=== PATIENT | male | born 1970 | race Caucasian/White ===

== ENCOUNTER 2021-01-22 11:37 | Emergency (ER) | payer BC ==
[2021-01-22 11:59] VITALS: BP 134/83; PULSE 86
[2021-01-22] MEDS ORDERED: Ketorolac 60 MG/2 ML SDV IM ONE (12:15)
[2021-01-22] MEDS ORDERED: Cyclobenzaprine 10 MG Tab PO ONE (12:15)
--- NOTE | 2021-01-22 12:41 | EDM.PDOC ---
ED HPI GENERAL MEDICAL PROBLEM - General Chief Complaint: Back Pain or Injury Stated Complaint: NECK AND LOW BACK PAIN Time Seen by Provider: 01/22/21 12:04 Source of Information: Reports: Patient, RN Notes Reviewed History Limitations: Reports: No Limitations - History of Present Illness INITIAL COMMENTS - FREE TEXT/NARRATIVE: Patient is a 50 year old male presenting to the ER with c/o neck and low back pain. 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 He had his welding helmet on top of his head and he sneezed, causing it to fall to the floor. He bent over to pick it up and experienced a sharp, stabbing pain his neck. He reports "tightness in his neck" and pain with turning his head from side to side. He has since developed muscle spasms in his low back as well. Denies any numbness, tingling, or radiation of pain. Denies bowel or bladder dysfunction. He has a history of degenerative disc disease and has had problems with neck and back pain intermittently for a number of years. He does see a chiropractor; however, they are not able to see him until Wednesday afternoon. His last dose of ibuprofen was around 0300 this morning. Back Pain Score (Numeric/FACES): 9 - Related Data Allergies Allergy/AdvReac Type Severity Reaction Status Date / Time No Known Allergies Allergy Verified 01/22/21 11:59 Home Meds: Home Meds Cyclobenzaprine [Flexeril] 10 mg PO TID PRN #10 tab 01/22/21 [Rx] Naproxen [Naprosyn] 500 mg PO Q12HR 5 Days #10 tab 01/22/21 [Rx] Past Medical History - Past Health History Medical/Surgical History: Denies Medical/Surgical History HEENT History: Reports: Impaired Vision Other HEENT History: glasses Cardiovascular History: Reports: Other (See Below) Other Cardiovascular History: history of chest pain Musculoskeletal History: Reports: Back Pain, Chronic Other Musculoskeletal History: Degenerative disc disease Endocrine/Metabolic History: Reports: Obesity/BMI 30+ - Past Surgical History Musculoskeletal Surgical History: Reports: Shoulder Surgery Other Musculoskeletal Surgeries/Procedures:: bilateral shoulder surgeries Social & Family History - Family History Family Medical History: No Pertinent Family History - Tobacco Use Tobacco Use Status *Q: Never Tobacco User - Caffeine Use Caffeine Use: Reports: Coffee, Energy Drinks - Recreational Drug Use Recreational Drug Use: No ED ROS GENERAL - Review of Systems Review Of Systems: See Below Constitutional: Reports: No Symptoms HEENT: Reports: No Symptoms Respiratory: Reports: No Symptoms Cardiovascular: Reports: No Symptoms Endocrine: Reports: No Symptoms GI/Abdominal: Reports: No Symptoms : Reports: No Symptoms Musculoskeletal: Reports: Neck Pain, Back Pain (low) Skin: Reports: No Symptoms Neurological: Reports: No Symptoms. Denies: Numbness, Paresthesia, Tingling Psychiatric: Reports: No Symptoms Hematologic/Lymphatic: Reports: No Symptoms Immunologic: Reports: No Symptoms ED EXAM,LOWER BACK PAIN/INJURY - Physical Exam Exam: See Below Exam Limited By: No Limitations General Appearance: Alert, WD/WN, No Apparent Distress Neck: Normal Inspection, Supple, Full Range of Motion, Tender Lateral (Bilaterally). No: Tender Midline Respiratory/Chest: No Respiratory Distress, Lungs Clear, Normal Breath Sounds, No Accessory Muscle Use, Chest Non-Tender Cardiovascular: Normal Peripheral Pulses, Regular Rate, Rhythm, No Edema, No Gallop, No JVD, No Murmur, No Rub Back Exam: Normal Inspection, Full Range of Motion, Paraspinal Tenderness (Bilateral low back). No: Vertebral Tenderness Extremities: Normal Inspection, Normal Range of Motion, Non-Tender, No Pedal Edema, Normal Capillary Refill Neurological: Alert, Normal Mood/Affect, Normal Dorsiflexion, CN II-XII Intact, Normal Plantar Flexion, Normal Gait, Normal Reflexes, No Motor/Sensory Deficits, Oriented x 3 Psychiatric: Normal Affect, Normal Mood Skin Exam: Warm, Dry, Intact, Normal Color, No Rash Course - Vital Signs Last Recorded V/S: Last Vital Signs Temp 97.1 F 01/22/21 11:56 Pulse 86 01/22/21 11:56 Resp 16 01/22/21 11:56 BP 134/83 01/22/21 11:56 Pulse Ox 99 01/22/21 11:56 - Orders/Labs/Meds Meds: Medications Discontinued Medications Generic Name Dose Route Start Last Admin Trade Name Freq PRN Reason Stop Dose Admin Cyclobenzaprine HCl 10 mg 01/22/21 12:15 01/22/21 12:34 Cyclobenzaprine 10 Mg Tab PO 01/22/21 12:16 10 mg ONETIME ONE Administration Ketorolac Tromethamine 60 mg 01/22/21 12:15 01/22/21 12:35 Ketorolac 60 Mg/2 Ml Sdv IM 01/22/21 12:16 60 mg ONETIME ONE Administration - Re-Assessments/Exams Free Text/Narrative Re-Assessment/Exam: 01/22/21 13:16 X-rays reviewed by myself and Dr. Brandon showed no acute abnormalities, however formal radiologist read is pending. Patient is feeling much better after the medications given. We will discharge him home with prescription for Flexeril and Naprosyn. He does have an appointment on Wednesday with chiropractor. Recommend that he keep this. I will give him a note for work for [employer]. Discharge instructions as documented. Departure - Departure Time of Disposition: 13:16 Disposition: Home, Self-Care 01 Condition: Good Clinical Impression: Neck pain Low back pain Qualifiers: Chronicity: acute Back pain laterality: unspecified Sciatica presence: without sciatica Qualified Code(s): M54.5 - Low back pain - Discharge Information Prescriptions: Cyclobenzaprine [Flexeril] 10 mg PO TID PRN #10 tab PRN Reason: Muscle Spasm Naproxen [Naprosyn] 500 mg PO Q12HR 5 Days #10 tab Instructions: Acute Back Pain, Adult Referrals: Flaquito Kerns MD [Primary Care Provider] - Forms: ED Department Discharge, ED Return to Work/School Form Additional Instructions: You were seen in the emergency department today for low back and neck pain that began at work last evening. X-rays were completed did not show any acute abnormalities, however formal radiologist read is pending. If this should report should find any concerning, you will be notified. You been started on Flexeril which is a muscle relaxer as well as Naprosyn for pain. Take these medications as prescribed. You may use Tylenol as needed for pain not relieved by these medications. Ensure that you are not taking more than 4000 mg of Tylenol per day from all sources. Applying heat intermittently to the areas of discomfort will also help to relax the muscles. Keep your appointment on Wednesday with your chiropractor. Return to ER for any new or worsening symptoms. Sepsis Event Note (ED) - Evaluation Sepsis Screening Result: No Definite Risk
--- NOTE | 2021-01-22 14:15 | CR ---
Lumbar spine: AP and lateral views of the lumbar spine were obtained. Comparison: Prior MRI lumbar spine study of 09/19/14. There is mild posterior disc space narrowing at L1-2, L2-3 and L3-4. Mild diffuse disc space narrowing at L4-5. Minimal scattered endplate osteophytes are seen. Pedicles are intact. Visualized transverse and spinous processes are intact. No subluxation or fracture is seen. Impression: 1. Mild diffuse disc space narrowing and endplate osteophytes. 2. Findings remain fairly stable from previous MRI. Diagnostic code #2
--- NOTE | 2021-01-22 14:16 | CR ---
Cervical spine: AP, lateral, odontoid and minimal flexion and extension views were obtained. Mild disc space narrowing is noted at C3-4, C4-5 with moderate disc space narrowing C5-6. Mild disc space narrowing is seen at C6-7. Slight posterior osteophyte are seen at C5-6 and C6-7. Slight anterior osteophytes are noted at C5-6 and C6-7. Minimal spurring is noted within the uncovertebral joints at C4-5 on the left side and at C5-6 on the left side. No discrete fracture or subluxation is seen. Impression: 1. Mild diffuse degenerative change as noted above. 2. Nothing acute is seen. Diagnostic code #2
== END 2021-01-22 13:32 | disposition home or self-care (01) ==
LOC: JD.ED 11:37
DX: M54.5 Low back pain (principal); M54.2 Cervicalgia; E66.9 Obesity, unspecified; Z68.33 Body mass index [BMI] 33.0-33.9, adult
CPT/HCPCS: 72040; 72100; 96372; 99283; A9270; J1885

== ENCOUNTER 2021-02-11 10:53 | Emergency (ER) | payer BC ==
[2021-02-11] MEDS ORDERED: Sodium Chloride 0.9% 10 ML Syringe FLUSH PRN (11:21)
[2021-02-11] MEDS ORDERED: hydrOXYzine HCl 50 MG Tab PO ONE (11:44)
[2021-02-11] MEDS ORDERED: LORazepam 2 MG/ML SDV IVPUSH ONE (11:44)
--- NOTE | 2021-02-11 11:45 | EDM.PDOC ---
ED HPI GENERAL MEDICAL PROBLEM - General Chief Complaint: Chest Pain Stated Complaint: SOB/CLAMMY/SHAKEY CHEST PAIN Time Seen by Provider: 02/11/21 11:07 Source of Information: Reports: Patient History Limitations: Reports: No Limitations - History of Present Illness INITIAL COMMENTS - FREE TEXT/NARRATIVE: 50 yo M presents with CP/SOB. Started this morning after he took workout supplements (unsure of exact contents but believes the do contain stimulants) and drinking caffeinated beverages. Had substernal chest tightness, palpitations, and paresthesias of bilateral upper extremities. Feels anxious/panicky. Feels tremulous. Nausea, no vomiting. Symptoms started suddenly and have been constant. No hx similar symptoms previously. No cough/fever/recent illness. He did have neck pain and is on last day of a prednisone taper for that. No additional complaint. Denies ETOH or drug use. Middle Chest Pain Score (Numeric/FACES): 2 - Related Data Allergies Allergy/AdvReac Type Severity Reaction Status Date / Time No Known Allergies Allergy Verified 02/11/21 11:10 Home Meds: Home Meds hydrOXYzine HCL [Atarax] 25 mg PO Q6H PRN #24 tab 02/11/21 [Rx] methylPREDNISolone [Methylprednisolone] 1 dose PO ASDIRECTED 02/11/21 [History] Past Medical History - Past Health History Medical/Surgical History: Denies Medical/Surgical History HEENT History: Reports: Impaired Vision Other HEENT History: glasses Cardiovascular History: Reports: Other (See Below) Other Cardiovascular History: history of chest pain Musculoskeletal History: Reports: Back Pain, Chronic Other Musculoskeletal History: Degenerative disc disease Endocrine/Metabolic History: Reports: Obesity/BMI 30+ - Past Surgical History Musculoskeletal Surgical History: Reports: Shoulder Surgery Other Musculoskeletal Surgeries/Procedures:: bilateral shoulder surgeries Social & Family History - Family History Family Medical History: No Pertinent Family History - Tobacco Use Tobacco Use Status *Q: Never Tobacco User Second Hand Smoke Exposure: No - Caffeine Use Caffeine Use: Reports: Coffee, Energy Drinks - Recreational Drug Use Recreational Drug Use: No ED ROS GENERAL - Review of Systems Review Of Systems: See Below Constitutional: Reports: No Symptoms HEENT: Reports: No Symptoms Respiratory: Reports: Shortness of Breath Cardiovascular: Reports: Chest Pain Endocrine: Reports: No Symptoms GI/Abdominal: Reports: Nausea Musculoskeletal: Reports: Neck Pain Skin: Reports: No Symptoms Neurological: Reports: Dizziness Psychiatric: Reports: Anxiety Hematologic/Lymphatic: Reports: No Symptoms Immunologic: Reports: No Symptoms ED EXAM, GENERAL - Physical Exam Exam: See Below Exam Limited By: No Limitations General Appearance: Alert, Anxious, Mild Distress Eye Exam: Bilateral Eye: Normal Inspection Ears: Normal External Exam Nose: Normal Inspection Throat/Mouth: Normal Inspection, Normal Voice, No Airway Compromise Head: Atraumatic Neck: Normal Inspection Respiratory/Chest: No Respiratory Distress, Lungs Clear, Normal Breath Sounds, No Accessory Muscle Use, Chest Non-Tender Cardiovascular: Normal Peripheral Pulses, Regular Rate, Rhythm, No Edema GI/Abdominal: No Distention Extremities: Normal Inspection Neurological: Alert, Oriented, Normal Cognition, No Motor/Sensory Deficits Psychiatric: Normal Affect, Normal Mood Skin Exam: Warm, Normal Color, No Rash, Diaphoretic Course - Vital Signs Last Recorded V/S: Last Vital Signs Temp 36.1 C 02/11/21 11:11 Pulse 84 02/11/21 11:11 Resp 16 02/11/21 11:11 BP 169/95 H 02/11/21 11:11 Pulse Ox 99 02/11/21 11:11 - Orders/Labs/Meds Orders: Active Orders 24 hr Category Date Time Status EKG 12 Lead [EKG Documentation Completion] [RC] STAT Care 02/11/21 11:21 Active Peripheral IV Care [RC] . DIRECTED Care 02/11/21 11:21 Active Peripheral IV Care [RC] . DIRECTED Care 02/11/21 11:21 Active Sodium Chloride 0.9% [Saline Flush] Med 02/11/21 11:21 Active 10 ml FLUSH ASDIRECTED PRN Peripheral IV Insertion Adult [OM.PC] Routine Oth 02/11/21 11:21 Ordered Medication Orders Sodium Chloride (Sodium Chloride 0.9% 10 Ml Syringe) 10 ml FLUSH ASDIRECTED PRN PRN Reason: Keep Vein Open Last Admin: 02/11/21 11:22 Dose: 10 ml Documented by: YUAN Labs: Laboratory Tests 02/11/21 02/11/21 02/11/21 Range/Units 11:10 11:10 11:10 WBC 14.74 H (4.23-9.07) K/mm3 RBC 5.67 (4.63-6.08) M/mm3 Hgb 16.6 (13.7-17.5) gm/dl Hct 47.4 (40.1-51.0) % MCV 83.6 (79.0-92.2) fl MCH 29.3 (25.7-32.2) pg MCHC 35.0 (32.2-35.5) g/dl RDW Std Deviation 38.9 (35.1-43.9) fL Plt Count 305 (163-337) K/mm3 MPV 9.7 (9.4-12.3) fl Neut % (Auto) 78.6 H (34.0-67.9) % Lymph % (Auto) 14.4 L (21.8-53.1) % [place] % (Auto) 6.7 (5.3-12.2) % Eos % (Auto) 0.2 L (0.8-7.0) Baso % (Auto) 0.1 (0.1-1.2) % Neut # (Auto) 11.58 H (1.78-5.38) K/mm3 Lymph # (Auto) 2.12 (1.32-3.57) K/mm3 [place] # (Auto) 0.99 H (0.30-0.82) K/mm3 Eos # (Auto) 0.03 L (0.04-0.54) K/mm3 Baso # (Auto) 0.02 (0.01-0.08) K/mm3 Manual Slide Review Normal smear D-Dimer, Quantitative < 0.19 L (0.19-0.50) mg/L Sodium 138 (136-145) mEq/L Potassium 3.6 (3.5-5.1) mEq/L Chloride 100 (98-107) mEq/L Carbon Dioxide 26 (21-32) mEq/L Anion Gap 15.6 H (5-15) BUN 21 H (7-18) mg/dL Creatinine 1.3 (0.7-1.3) mg/dL Est Cr Clr Drug Dosing 74.01 mL/min Estimated GFR (MDRD) 59 (>60) mL/min BUN/Creatinine Ratio 16.2 (14-18) Glucose 109 H (70-99) mg/dL POC Glucose (70-99) mg/dL Calcium 9.2 (8.5-10.1) mg/dL Magnesium 2.3 (1.8-2.4) mg/dL Total Bilirubin 0.5 (0.2-1.0) mg/dL AST 25 (15-37) U/L ALT 77 H (16-63) U/L Alkaline Phosphatase 87 (46-116) U/L Troponin I < 0.017 (0.00-0.056) ng/mL Total Protein 8.1 (6.4-8.2) g/dl Albumin 4.4 (3.4-5.0) g/dl Globulin 3.7 gm/dL Albumin/Globulin Ratio 1.2 (1-2) 02/11/21 Range/Units 11:15 WBC (4.23-9.07) K/mm3 RBC (4.63-6.08) M/mm3 Hgb (13.7-17.5) gm/dl Hct (40.1-51.0) % MCV (79.0-92.2) fl MCH (25.7-32.2) pg MCHC (32.2-35.5) g/dl RDW Std Deviation (35.1-43.9) fL Plt Count (163-337) K/mm3 MPV (9.4-12.3) fl Neut % (Auto) (34.0-67.9) % Lymph % (Auto) (21.8-53.1) % [place] % (Auto) (5.3-12.2) % Eos % (Auto) (0.8-7.0) Baso % (Auto) (0.1-1.2) % Neut # (Auto) (1.78-5.38) K/mm3 Lymph # (Auto) (1.32-3.57) K/mm3 [place] # (Auto) (0.30-0.82) K/mm3 Eos # (Auto) (0.04-0.54) K/mm3 Baso # (Auto) (0.01-0.08) K/mm3 Manual Slide Review D-Dimer, Quantitative (0.19-0.50) mg/L Sodium (136-145) mEq/L Potassium (3.5-5.1) mEq/L Chloride (98-107) mEq/L Carbon Dioxide (21-32) mEq/L Anion Gap (5-15) BUN (7-18) mg/dL Creatinine (0.7-1.3) mg/dL Est Cr Clr Drug Dosing mL/min Estimated GFR (MDRD) (>60) mL/min BUN/Creatinine Ratio (14-18) Glucose (70-99) mg/dL POC Glucose 106 H (70-99) mg/dL Calcium (8.5-10.1) mg/dL Magnesium (1.8-2.4) mg/dL Total Bilirubin (0.2-1.0) mg/dL AST (15-37) U/L ALT (16-63) U/L Alkaline Phosphatase (46-116) U/L Troponin I (0.00-0.056) ng/mL Total Protein (6.4-8.2) g/dl Albumin (3.4-5.0) g/dl Globulin gm/dL Albumin/Globulin Ratio (1-2) Meds: Medications Generic Name Dose Route Start Last Admin Trade Name Freq PRN Reason Stop Dose Admin Sodium Chloride 10 ml 02/11/21 11:21 02/11/21 11:22 Sodium Chloride 0.9% 10 Ml Syringe FLUSH 10 ml ASDIRECTED PRN Administration Keep Vein Open Discontinued Medications Generic Name Dose Route Start Last Admin Trade Name Freq PRN Reason Stop Dose Admin Hydroxyzine HCl 50 mg 02/11/21 11:44 02/11/21 11:53 Hydroxyzine Hcl 50 Mg Tab PO 02/11/21 11:45 50 mg ONETIME ONE Administration Lorazepam 1 mg 02/11/21 11:44 02/11/21 11:54 Lorazepam 2 Mg/Ml Sdv IVPUSH 02/11/21 11:45 1 mg ONETIME ONE Administration - Re-Assessments/Exams Free Text/Narrative Re-Assessment/Exam: 02/11/21 11:52 EKG shows NSR, normal intervals, no evidence of acute ischemia or arrhythmia. CXR unremarkable. Labs including troponin normal. Advised patient to discontinue exercise supplements and reduce caffeine use. He feels much better now. We will discharge him with small rx hydroxyzine, discussed ED return precautions. 02/11/21 14:21 Departure - Departure Time of Disposition: 13:30 Disposition: Home, Self-Care 01 Clinical Impression: Palpitations Chest pain Qualifiers: Chest pain type: other chest pain Qualified Code(s): R07.89 - Other chest pain Prescriptions: hydrOXYzine HCL [Atarax] 25 mg PO Q6H PRN #24 tab PRN Reason: Anxiety Instructions: Nonspecific Chest Pain, Adult, [id number] Referrals: Flaquito Kerns MD [Primary Care Provider] - Forms: ED Department Discharge, ED Return to Work/School Form Additional Instructions: 1. Avoid caffeine and any supplements that contain stimulants 2. Take hydroxyzine as needed for anxiety symptoms 3. Follow up with your regular doctor as soon as possible 4. Return to the ED as needed for any new concerning symptoms Sepsis Event Note (ED) - Evaluation Sepsis Screening Result: No Definite Risk - Focused Exam Vital Signs: Vital Signs Temp Pulse Resp BP Pulse Ox 02/11/21 11:11 36.1 C 84 16 169/95 H 99 - My Orders Last 24 Hours: My Active Orders 02/11/21 11:21 EKG 12 Lead [EKG Documentation Completion] [RC] STAT Peripheral IV Care [RC] . DIRECTED Peripheral IV Care [RC] . DIRECTED Sodium Chloride 0.9% [Saline Flush] 10 ml FLUSH ASDIRECTED PRN Peripheral IV Insertion Adult [OM.PC] Routine - Assessment/Plan Last 24 Hours: My Active Orders 02/11/21 11:21 EKG 12 Lead [EKG Documentation Completion] [RC] STAT Peripheral IV Care [RC] . DIRECTED Peripheral IV Care [RC] . DIRECTED Sodium Chloride 0.9% [Saline Flush] 10 ml FLUSH ASDIRECTED PRN Peripheral IV Insertion Adult [OM.PC] Routine
--- NOTE | 2021-02-11 12:09 | CR ---
Chest: Portable view of the chest was obtained. Comparison: Prior chest x-rays of 04/12/14 and 03/20/14. Findings: Heart size and mediastinum are normal. Lungs are clear with no acute parenchymal change. No acute osseous abnormality is appreciated. Impression: 1. Nothing acute is seen on portable chest x-ray. Diagnostic code #1
[2021-02-11 15:00] VITALS: BP 122/89; PULSE 83
== END 2021-02-11 14:45 | disposition home or self-care (01) ==
LOC: JD.ED 10:53
DX: R07.89 Other chest pain (principal); R00.2 Palpitations; E66.9 Obesity, unspecified; Z68.32 Body mass index [BMI] 32.0-32.9, adult
CPT/HCPCS: 36415; 71045; 80053; 82947; 83735; 84484; 85025; 85379; 93005; 96374; 99285; A9270; J2060

== ENCOUNTER 2021-02-12 22:05 | Emergency (ER) | payer BC ==
[2021-02-12 22:19] VITALS: BP 146/89
[2021-02-12] MEDS ORDERED: LORazepam 2 MG/ML SDV IVPUSH ONE (22:43)
[2021-02-12] MEDS ORDERED: Aspirin 81 MG Tab.Chew PO ONE (22:43)
--- NOTE | 2021-02-12 22:58 | EDM.PDOC ---
<Misbah No - Last Filed: 02/12/21 23:05> ED HPI GENERAL MEDICAL PROBLEM - General Chief Complaint: Respiratory Problem Stated Complaint: [facility] Time Seen by Provider: 02/12/21 22:32 Source of Information: Reports: Patient, EMS, RN Notes Reviewed - History of Present Illness INITIAL COMMENTS - FREE TEXT/NARRATIVE: 50 yr old male started getting ant. chest discomfort while at work about 3 hrs ago. He than started getting short of breath. He started driving himself here but that got more short of breath, lightheaded, felt like he was about to pass out so pulled to edge of road or street and called EMS. No known cardiac or pulmonary hx. 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 He and his both had covid about 2 months ago. His sx were not severe. He is under a lot of stress, his has long covid, currently unable to work. He presented to this ED yesterday with very similar sx. Had a complete neg work up with appropriate labs and Xray including a neg trop. and D Dimer. See that record for details. He does not smoke. He is not diabetic. Of noted he did have paresthesias of both upper extremities yesterday and did experience that again this evening. - Related Data Allergies Allergy/AdvReac Type Severity Reaction Status Date / Time No Known Allergies Allergy Verified 02/11/21 11:10 Home Meds: Home Meds hydrOXYzine HCL [Atarax] 25 mg PO Q6H PRN #24 tab 02/11/21 [Rx] methylPREDNISolone [Methylprednisolone] 1 dose PO ASDIRECTED 02/11/21 [History] Past Medical History - Past Health History Medical/Surgical History: Denies Medical/Surgical History HEENT History: Reports: Impaired Vision Other HEENT History: glasses Cardiovascular History: Reports: Other (See Below) Other Cardiovascular History: history of chest pain Musculoskeletal History: Reports: Back Pain, Chronic Other Musculoskeletal History: Degenerative disc disease Endocrine/Metabolic History: Reports: Obesity/BMI 30+ - Past Surgical History Musculoskeletal Surgical History: Reports: Shoulder Surgery Other Musculoskeletal Surgeries/Procedures:: bilateral shoulder surgeries Social & Family History - Family History Family Medical History: No Pertinent Family History - Tobacco Use Tobacco Use Status *Q: Never Tobacco User - Caffeine Use Caffeine Use: Reports: Energy Drinks - Recreational Drug Use Recreational Drug Use: No ED ROS GENERAL - Review of Systems Review Of Systems: See Below Constitutional: Denies: Fever, Chills, Diaphoresis HEENT: Reports: No Symptoms Respiratory: Reports: Shortness of Breath. Denies: Pleuritic Chest Pain Cardiovascular: Reports: Chest Pain GI/Abdominal: Denies: Abdominal Pain, Nausea, Vomiting Musculoskeletal: Denies: Shoulder Pain, Arm Pain, Back Pain Skin: Reports: No Symptoms Neurological: Reports: Dizziness, Numbness (bilat hands and fingers) ED EXAM, GENERAL - Physical Exam Exam: See Below General Appearance: Alert, Anxious Throat/Mouth: Normal Inspection Head: Atraumatic Neck: Supple Respiratory/Chest: No Respiratory Distress, Lungs Clear, Normal Breath Sounds Cardiovascular: Regular Rate, Rhythm GI/Abdominal: Soft, Non-Tender Back Exam: No: CVA Tenderness (L), CVA Tenderness (R) Extremities: Normal Inspection. No: Leg Pain, Increased Warmth, Redness Neurological: Alert, Oriented, No Motor/Sensory Deficits Skin Exam: Warm, Dry, Normal Color #1 Interpretation EKG Date: 02/12/21 Rhythm: NSR [place]: Normal P-Wave: Present QRS: Other (very small q waves lead III) ST-T: Elevated (very slight st elevation lead III) Course - Re-Assessments/Exams Free Text/Narrative Re-Assessment/Exam: 02/12/21 23:00. It is now time for end of my shift. Have reviewed record of yesterday's visit. As noted workup yesterday was neg. including neg trop. and D Dimer. EKG does not show acute findings, CXR nl. Trop pending. Have ordered ASA 324 mg PO, ativan 0.5 mg IV. Departure - Departure Disposition: Home, Self-Care 01 Clinical Impression: Atypical chest pain, Anxiety - Discharge Information Referrals: PCP,None [Primary Care Provider] - Forms: ED Department Discharge Additional Instructions: Return to the emergency room with any questions problems or concerning symptoms. Avoid energy drinks. Push lots of fluids that are noncaffeinated. Use the hydroxyzine as needed for anxiety. Establish with a local healthcare provider. The phone number to the hospital clinic is [phone]. Sepsis Event Note (ED) - Evaluation Sepsis Screening Result: No Definite Risk <Juan Jose Eisenberg - Last Filed: 02/13/21 00:05> Course - Vital Signs Last Recorded V/S: Last Vital Signs Temp 36.7 C 02/12/21 22:13 Pulse 94 02/12/21 22:13 Resp 18 02/12/21 22:13 BP 146/89 H 02/12/21 22:13 Pulse Ox 97 02/12/21 22:13 - Orders/Labs/Meds Orders: Active Orders 24 hr Category Date Time Status EKG Documentation Completion [RC] ASDIRECTED Care 02/12/21 22:14 Active Chest 1V Frontal [CR] Stat Exams 02/12/21 22:17 Taken EKG 12 Lead [EK] Stat Ther 02/12/21 22:14 Ordered Labs: Laboratory Tests 02/12/21 Range/Units 23:00 Troponin I < 0.017 (0.00-0.056) ng/mL Meds: Medications Discontinued Medications Generic Name Dose Route Start Last Admin Trade Name Fredoq PRN Reason Stop Dose Admin Aspirin 324 mg 02/12/21 22:43 02/12/21 22:49 Aspirin 81 Mg Tab.Chew PO 02/12/21 22:44 324 mg ONETIME ONE Administration Lorazepam 0.5 mg 02/12/21 22:43 02/12/21 22:49 Lorazepam 2 Mg/Ml Sdv IVPUSH 02/12/21 22:44 0.5 mg ONETIME ONE Administration - Re-Assessments/Exams Free Text/Narrative Re-Assessment/Exam: 02/13/21 00:02 Assumed care at after Dr. No was done with this shift. The patient's troponin came back negative he received 0.5 of Ativan and feels much better. We will discharge home at this time. Departure - Departure Time of Disposition: 00:03 Sepsis Event Note (ED) - Focused Exam Vital Signs: Vital Signs Temp Pulse Resp BP Pulse Ox 02/12/21 22:13 36.7 C 94 18 146/89 H 97
[2021-02-13 00:09] VITALS: PULSE 89
--- NOTE | 2021-02-13 08:12 | CR ---
Chest: Frontal view of the chest was obtained. Comparison: Prior chest x-ray of 02/11/21. Heart size and mediastinum are normal. Lungs are clear with no acute parenchymal change. No acute osseous abnormality is appreciated. Impression: 1. Nothing acute is seen on frontal chest x-ray. Diagnostic code #1
== END 2021-02-13 00:09 | disposition home or self-care (01) ==
LOC: JD.ED 22:05
DX: R07.89 Other chest pain (principal); F41.9 Anxiety disorder, unspecified; E66.9 Obesity, unspecified; Z68.34 Body mass index [BMI] 34.0-34.9, adult
CPT/HCPCS: 36415; 71045; 84484; 93005; 96374; 99285; A9270; J2060; 93010; 99284

== ENCOUNTER 2021-02-13 21:54 | Emergency (ER) | payer BC ==
[2021-02-13 22:05] VITALS: BP 138/85; PULSE 87
--- NOTE | 2021-02-13 22:21 | EDM.PDOC ---
ED HPI GENERAL MEDICAL PROBLEM - General Chief Complaint: Chest Pain Stated Complaint: SOB/CHEST PAIN Time Seen by Provider: 02/13/21 22:01 Source of Information: Reports: Patient, Family History Limitations: Reports: No Limitations - History of Present Illness INITIAL COMMENTS - FREE TEXT/NARRATIVE: Patient is a 50-year-old male who is complaining of numerous somatic complaints including dizziness which is worse with standing and a 10 out of 10 sharp stabbing chest pain which started approximately 1 hour prior to arrival has completely resolved in the meantime and he states was very short in duration. Patient was feeling nauseous at the time denies any nausea vomiting diarrhea. Chest pain seems to be worse with eating or drinking. Patient is feeling very lightheaded at times is feeling dizzy. Clinically he looks dehydrated. Patient was seen in the emergency department twice in the last 2 days and was seen by his PCP earlier today all for similar symptoms. With his ER visits all his lab work and EKGs were normal and is felt to be having anxiety since he responded to lorazepam. Patient is complaining of having some paresthesias and his upper extremities right more so than left he denies any focal weakness or other neurological symptoms. Patient was noted to be drinking excessive amount of energy drinks yesterday but denies having any today. Nuys any bloody or tarry looking stools. He has had no hematemesis. Is any swelling to his calves or ankles. He is not feeling short of breath. Duration: Day(s): (3 days), Waxing/Waning Severity: Moderate Improves with: Reports: None Worsens with: Reports: Eating Associated Symptoms: Reports: Chest Pain. Denies: Cough, Diaphoresis, Fever/Chills, Headaches, Loss of Appetite, Rash, Shortness of Breath Middle Chest Pain Score (Numeric/FACES): 7 - Related Data Allergies Allergy/AdvReac Type Severity Reaction Status Date / Time No Known Allergies Allergy Verified 02/13/21 22:05 Home Meds: Home Meds hydrOXYzine HCL [Atarax] 25 mg PO Q6H PRN #24 tab 02/11/21 [Rx] Sertraline [Zoloft] 50 mg PO BEDTIME 02/13/21 [History] Metoclopramide [Reglan] 5 mg PO Q8H PRN #20 tab 02/14/21 [Rx] Past Medical History - Past Health History Medical/Surgical History: Denies Medical/Surgical History HEENT History: Reports: Impaired Vision Other HEENT History: glasses Cardiovascular History: Reports: Other (See Below) Other Cardiovascular History: history of chest pain Musculoskeletal History: Reports: Back Pain, Chronic Other Musculoskeletal History: Degenerative disc disease Psychiatric History: Reports: Anxiety Endocrine/Metabolic History: Reports: Obesity/BMI 30+ - Past Surgical History Musculoskeletal Surgical History: Reports: Shoulder Surgery Other Musculoskeletal Surgeries/Procedures:: bilateral shoulder surgeries Social & Family History - Family History Family Medical History: No Pertinent Family History - Tobacco Use Tobacco Use Status *Q: Never Tobacco User - Caffeine Use Caffeine Use: Reports: Energy Drinks, Soda - Recreational Drug Use Recreational Drug Use: No ED ROS GENERAL - Review of Systems Review Of Systems: Comprehensive ROS is negative, except as noted in HPI. Constitutional: Reports: Malaise. Denies: Fever, Chills HEENT: Reports: No Symptoms Respiratory: Reports: No Symptoms Cardiovascular: Reports: Chest Pain, Lightheadedness. Denies: Dyspnea on Exertion, Edema, Palpitations Endocrine: Reports: Fatigue. Denies: Polydypsia, Polyuria GI/Abdominal: Reports: No Symptoms. Denies: Black Stool : Reports: No Symptoms Musculoskeletal: Reports: No Symptoms Skin: Reports: No Symptoms Neurological: Reports: Dizziness, Numbness, Paresthesia, Tingling. Denies: Headache, Trouble Speaking, Change in Speech, Gait Disturbance Psychiatric: Reports: No Symptoms Hematologic/Lymphatic: Reports: No Symptoms ED EXAM, GENERAL - Physical Exam Exam: See Below Exam Limited By: No Limitations General Appearance: No Apparent Distress Throat/Mouth: Other (Mucous membranes are dry.) Neck: Normal Inspection, Supple, Full Range of Motion Cardiovascular: Regular Rate, Rhythm, No Edema, No JVD GI/Abdominal: Normal Bowel Sounds, Soft, Non-Tender Back Exam: Normal Inspection Extremities: Normal Inspection, No Pedal Edema Neurological: Alert, Oriented, CN II-XII Intact, Slow to Respond Psychiatric: Flat Affect Skin Exam: Warm, Dry, Normal Color, No Rash Lymphatic: No Adenopathy #1 Interpretation EKG Date: 02/13/21 Rhythm: NSR P-Wave: Present QRS: Normal ST-T: Normal QT: Normal Comparison: No Change (Normal sinus rhythm without any ST or T wave changes.) Course - Vital Signs Text/Narrative:: Patient is clinically dehydrated. I believe he is having some vertigo symptoms and have given him some Reglan 5 mg IV for this. He will receive 2 L of IV fluid. His chest pain which occurred 1 hour ago briefly 10 out of 10 intensity after eating and drinking I believe is related to some gastroesophageal reflux disease. I given him a GI cocktail for this. Work-up tonight is normal except a slightly elevated ALT.patient is feeling much better after 1 L IV fluid. After he received a second liter I will discharge him home with a prescription for Reglan and instructed him to get some [id number] Prilosec and follow- up with his PCP. Patient is to return to ER if symptoms are worse and follow-up with his PCP if symptoms continue. Last Recorded V/S: Last Vital Signs Temp 97.8 F 02/13/21 22:01 Pulse 87 02/13/21 22:01 Resp 16 02/13/21 22:01 BP 138/85 02/13/21 22:01 Pulse Ox 97 02/13/21 22:01 - Orders/Labs/Meds Orders: Active Orders 24 hr Category Date Time Status EKG 12 Lead [EKG Documentation Completion] [RC] STAT Care 02/13/21 22:00 Active EKG Documentation Completion [RC] STAT Care 02/13/21 22:22 Active Sodium Chloride 0.9% [Normal Saline] 1,000 ml Med 02/13/21 23:32 Active IV ONETIME Medication Orders Sodium Chloride (Normal Saline) 1,000 mls @ 999 mls/hr IV ONETIME ONE Stop: 02/14/21 00:32 Last Admin: 02/13/21 23:40 Dose: 999 mls/hr Documented by: MEREDITH Labs: Laboratory Tests 02/13/21 02/13/21 02/13/21 Range/Units 22:30 22:30 23:49 WBC 9.67 H (4.23-9.07) K/mm3 RBC 5.65 (4.63-6.08) M/mm3 Hgb 16.1 (13.7-17.5) gm/dl Hct 48.6 (40.1-51.0) % MCV 86.0 (79.0-92.2) fl MCH 28.5 (25.7-32.2) pg MCHC 33.1 (32.2-35.5) g/dl RDW Std Deviation 41.0 (35.1-43.9) fL Plt Count 308 (163-337) K/mm3 MPV 9.6 (9.4-12.3) fl Neutrophils % (Manual) 78 H (40-60) % Band Neutrophils % 0 (0-10) % Lymphocytes % (Manual) 15 L (20-40) % Atypical Lymphs % 0 % Monocytes % (Manual) 7 (2-10) % Eosinophils % (Manual) 0 L (0.8-7.0) % Basophils % (Manual) 0 L (0.2-1.2) Platelet Estimate Adequate Plt Morphology Comment Normal RBC Morph Comment Normal Sodium 140 (136-145) mEq/L Potassium 4.3 (3.5-5.1) mEq/L Chloride 102 (98-107) mEq/L Carbon Dioxide 27 (21-32) mEq/L Anion Gap 15.3 H (5-15) BUN 17 (7-18) mg/dL Creatinine 1.2 (0.7-1.3) mg/dL Est Cr Clr Drug Dosing 77.73 mL/min Estimated GFR (MDRD) > 60 (>60) mL/min BUN/Creatinine Ratio 14.2 (14-18) Glucose 122 H (70-99) mg/dL Calcium 8.8 (8.5-10.1) mg/dL Total Bilirubin 0.3 (0.2-1.0) mg/dL AST 26 (15-37) U/L ALT 80 H (16-63) U/L Alkaline Phosphatase 84 (46-116) U/L CK-MB (CK-2) 0.8 (0-3.6) ng/ml Troponin I < 0.017 (0.00-0.056) ng/mL Total Protein 7.6 (6.4-8.2) g/dl Albumin 3.9 (3.4-5.0) g/dl Globulin 3.7 gm/dL Albumin/Globulin Ratio 1.1 (1-2) Urine Color Light yellow (Yellow) Urine Appearance Clear (Clear) Urine pH 7.0 (5.0-8.0) Ur Specific [employer] 1.025 (1.005-1.030) Urine Protein Negative (Negative) Urine Glucose (UA) Negative (Negative) Urine Ketones Negative (Negative) Urine Occult Blood Negative (Negative) Urine Nitrite Negative (Negative) Urine Bilirubin Negative (Negative) Urine Urobilinogen 0.2 (0.2-1.0) Ur Leukocyte Esterase Negative (Negative) Meds: Medications Generic Name Dose Route Start Last Admin Trade Name Freq PRN Reason Stop Dose Admin Sodium Chloride 1,000 mls @ 999 mls/hr 02/13/21 23:32 02/13/21 23:40 Normal Saline IV 02/14/21 00:32 999 mls/hr ONETIME ONE Administration Discontinued Medications Generic Name Dose Route Start Last Admin Trade Name Fredoq PRN Reason Stop Dose Admin Al Hydroxide/Mg Hydroxide 30 0 ml 02/13/21 22:24 02/13/21 22:39 ml/ Lidocaine HCl 15 ml PO 02/13/21 22:25 45 ml ONETIME ONE Administration Sodium Chloride 1,000 mls @ 1,000 mls/hr 02/13/21 22:23 02/13/21 22:39 Normal Saline IV 02/13/21 23:22 1,000 mls/hr ONETIME ONE Administration Metoclopramide HCl 5 mg 02/13/21 22:23 02/13/21 22:39 Metoclopramide 10 Mg/2 Ml Sdv IVPUSH 02/13/21 22:24 5 mg ONETIME ONE Administration Departure - Departure Time of Disposition: 00:20 Disposition: Home, Self-Care 01 Condition: Good Clinical Impression: Gastroesophageal reflux disease, Dehydration, Positional vertigo Prescriptions: Metoclopramide [Reglan] 5 mg PO Q8H PRN #20 tab PRN Reason: Dizziness Instructions: Vertigo, [id number], Food Choices for Gastroesophageal Reflux Disease, Adult, Dehydration, Adult, [id number], Nonspecific Chest Pain, Adult, [id number] Referrals: Flaquito Kerns MD [Primary Care Provider] - Forms: ED Department Discharge Additional Instructions: [id number] Prilosec. Antacids as needed. Low-fat diet with small meals only. Follow-up with PCP for GI referral if symptoms continue. Increase p.o. fluids. Avoid caffeinated beverages. Return to emergency department if symptoms are worse. Reglan as needed Sepsis Event Note (ED) - Evaluation Sepsis Screening Result: No Definite Risk - Focused Exam Vital Signs: Vital Signs Temp Pulse Resp BP Pulse Ox 02/13/21 22:01 97.8 F 87 16 138/85 97 - My Orders Last 24 Hours: My Active Orders 02/13/21 22:00 EKG 12 Lead [EKG Documentation Completion] [RC] STAT 02/13/21 22:22 EKG Documentation Completion [RC] STAT 02/13/21 23:32 Sodium Chloride 0.9% [Normal Saline] 1,000 ml IV ONETIME - Assessment/Plan Last 24 Hours: My Active Orders 02/13/21 22:00 EKG 12 Lead [EKG Documentation Completion] [RC] STAT 02/13/21 22:22 EKG Documentation Completion [RC] STAT 02/13/21 23:32 Sodium Chloride 0.9% [Normal Saline] 1,000 ml IV ONETIME
[2021-02-13] MEDS ORDERED: Metoclopramide 10 MG/2 ML SDV IVPUSH ONE (22:23)
[2021-02-13] MEDS ORDERED: Sodium Chloride 0.9% 1,000 ML IV ONE ×2 (22:23→23:32)
[2021-02-13] MEDS ORDERED: Alum Hydrox/Mag Hydrox/Simeth 30 ML, Lidocaine 2% 15 ML PO ONE ×2 (22:24)
== END 2021-02-14 00:39 | disposition home or self-care (01) ==
LOC: JD.ED 21:54
DX: H81.10 Benign paroxysmal vertigo, unspecified ear (principal); K21.9 Gastro-esophageal reflux disease without esophagitis; E86.0 Dehydration; E66.9 Obesity, unspecified; Z68.33 Body mass index [BMI] 33.0-33.9, adult
CPT/HCPCS: 36415; 80053; 81003; 82553; 84484; 85007; 85027; 93005; 96374; 99285; A9270; J2765; J7030

== ENCOUNTER 2021-02-16 01:55 | Emergency (ER) | payer BC ==
--- NOTE | 2021-02-16 02:12 | EDM.PDOCBH ---
ED HPI GENERAL MEDICAL PROBLEM - General Chief Complaint: Behavioral/Psych Stated Complaint: sob Time Seen by Provider: 02/16/21 02:11 Source of Information: Reports: Patient History Limitations: Reports: No Limitations - History of Present Illness INITIAL COMMENTS - FREE TEXT/NARRATIVE: Patient is a 50-year-old male who is been seen by me on February 13 and has been seen 3 other times in the department over the last week. He has had cardiac work-ups each time with normal EKGs cardiac enzymes and negative D-dimers. He has been drinking a lot of energy drinks with caffeine earlier in the week but he denies that he still drinking these. He is extremely anxious tonight pacing the room was unable to sit still. He denies to me the use of any street drugs and denies being suicidal or homicidal. Patient is under a lot of financial stress and has somewhat pressured speech with his anxiety. He denies any hallucinations. He denies having similar symptoms before 1 week ago. When I saw him several days ago he had numerous somatic complaints but my final diagnosis of him was anxiety. He is much worse tonight than he was then. Duration: Week(s): (one) Improves with: Reports: None Worsens with: Reports: None Associated Symptoms: Denies: Confusion, Cough, Diaphoresis, Headaches, Nausea/Vomiting, Shortness of Breath - Related Data Allergies Allergy/AdvReac Type Severity Reaction Status Date / Time No Known Allergies Allergy Verified 02/16/21 02:12 Home Meds: Home Meds Sertraline [Zoloft] 50 mg PO BEDTIME 02/13/21 [History] Metoclopramide [Reglan] 5 mg PO Q8H PRN #20 tab 02/14/21 [Rx] LORazepam [Ativan] 1 mg PO Q8H PRN #10 tab 02/16/21 [Rx] hydrOXYzine HCL [Atarax] 50 mg PO Q6H PRN 02/16/21 [History] methylPREDNISolone [Methylprednisolone] 4 mg PO DAILY 02/16/21 [History] Past Medical History - Past Health History Medical/Surgical History: Denies Medical/Surgical History HEENT History: Reports: Impaired Vision Other HEENT History: glasses Cardiovascular History: Reports: Other (See Below) Other Cardiovascular History: history of chest pain Musculoskeletal History: Reports: Back Pain, Chronic Other Musculoskeletal History: Degenerative disc disease Psychiatric History: Reports: Anxiety Endocrine/Metabolic History: Reports: Obesity/BMI 30+ - Past Surgical History Musculoskeletal Surgical History: Reports: Shoulder Surgery Other Musculoskeletal Surgeries/Procedures:: bilateral shoulder surgeries Social & Family History - Family History Family Medical History: No Pertinent Family History - Caffeine Use Caffeine Use: Reports: Energy Drinks, Soda ED ROS GENERAL - Review of Systems Review Of Systems: Comprehensive ROS is negative, except as noted in HPI. ED EXAM, BEHAVIORAL HEALTH - Physical Exam Exam: See Below Exam Limited By: No Limitations General Appearance: Anxious, Mild Distress Throat/Mouth: Normal Inspection, Normal Oropharynx Head: Atraumatic, Normocephalic Neck: Normal Inspection, Supple Respiratory/Chest: No Respiratory Distress, Lungs Clear, Normal Breath Sounds Cardiovascular: Regular Rate, Rhythm, No JVD GI/Abdominal: Normal Bowel Sounds, Soft, No Organomegaly, No Distention Extremities: Normal Inspection Neurological: CN II-XII Intact, Normal Cognition Psychiatric: Restless, Agitated. No: Disoriented, Non-Communicative, Uncooperative, Flight of Ideas, Homicidal Thoughts, Suicidal Thoughts, Auditory Hallucinations, Visual Hallucinations, Grandiose Thoughts, Paranoid Thoughts, Threatening Behavior Skin Exam: Warm, Dry COURSE, BEHAVIORAL HEALTH COMP - Course Vital Signs: Last Vital Signs Temp 97.2 F 02/16/21 02:14 Pulse 102 H 02/16/21 02:14 Resp 24 H 02/16/21 02:14 BP 155/98 H 02/16/21 02:14 Pulse Ox 100 02/16/21 02:14 Patient's medical record was reviewed for the last 4 ER visits. He was then given 1 mg lorazepam afterwards he is very calm relaxed and behaving normally. I am recommending he follow-up with behavioral health as soon as possible this week for additional counseling and treatment. He is currently taking an antidepressive. He is instructed to return to emergency department if symptoms worsen. Orders, Labs, Meds: Laboratory Tests 02/16/21 Range/Units 02:48 Urine Opiates Screen Negative (DALRBK=734) Ur Buprenorphine Scrn Negative (CUTOFF=10) Ur Oxycodone Screen Negative (CRB4MF=000) Urine Methadone Screen Negative (CLO4CR=843) Ur Propoxyphene Screen Negative (GKRBYW=730) Ur Barbiturates Screen Negative (ILKWCR=272) Ur Tricyclics Screen Negative (CCCBAQ=957) Ur Phencyclidine Scrn Negative (CUTOFF=25) Ur Amphetamine Screen Negative (TBUIIH=070) U Methamphetamines Scrn Negative (LAFEOH=964) U Benzodiazepines Scrn Negative (XBAWDD=799) U Cocaine Metab Screen Negative (TWXJFA=690) U Marijuana (THC) Screen Negative (CUTOFF=50) Medications Discontinued Medications Generic Name Dose Route Start Last Admin Trade Name Freq PRN Reason Stop Dose Admin Lorazepam Confirm 02/16/21 02:36 Lorazepam 1 Mg Tab Administered 02/16/21 02:37 Dose 1 mg .ROUTE .STK-MED ONE Lorazepam 1 mg 02/16/21 02:38 02/16/21 02:40 Lorazepam 1 Mg Tab PO 02/16/21 02:39 1 mg ONETIME ONE Administration Departure - Departure Time of Disposition: 03:39 Disposition: Home, Self-Care 01 Condition: Fair Clinical Impression: Panic disorder, Depressive disorder - Discharge Information Instructions: Managing Anxiety, Adult Referrals: Flaquito Kerns MD [Primary Care Provider] - [facility] [Outside] Forms: ED Department Discharge Additional Instructions: Avoid caffeine or other stimulants. Return to ER if symptoms are worse. Lorazepam No. 10 as prescribed. Follow-up with [facility] as soon as possible. See your PCP this coming up week for recheck. Sepsis Event Note (ED) - Focused Exam Vital Signs: Vital Signs Temp Pulse Resp BP Pulse Ox 02/16/21 02:14 97.2 F 102 H 24 H 155/98 H 100
[2021-02-16 02:19] VITALS: BP 155/98; PULSE 102
[2021-02-16] MEDS ORDERED: LORazepam 1 MG Tab ONE (02:36)
[2021-02-16] MEDS ORDERED: LORazepam 1 MG Tab PO ONE (02:38)
== END 2021-02-16 03:50 | disposition home or self-care (01) ==
LOC: JD.ED 01:55
DX: F32.9 Major depressive disorder, single episode, unspecified (principal); F41.0 Panic disorder [episodic paroxysmal anxiety]; Z79.899 Other long term (current) drug therapy
CPT/HCPCS: 80306; 99283; A9270

== ENCOUNTER 2021-12-22 22:38 | Emergency (ER) | payer BC ==
[2021-12-22 22:58] VITALS: BP 137/78; PULSE 85
== END 2021-12-23 00:44 | disposition home or self-care (01) ==
LOC: JD.ED 22:38
DX: K42.9 Umbilical hernia without obstruction or gangrene (principal); E66.9 Obesity, unspecified; Z68.36 Body mass index [BMI] 36.0-36.9, adult; Z28.310 Unvaccinated for COVID-19
CPT/HCPCS: 99283